=== PATIENT | female | born 1990 | race Caucasian/White ===

== ENCOUNTER 2016-09-25 16:25 | Observation (INO) | payer MEDICAID ==
[~2016-09-25] VITALS: Ht 154.9 cm; Wt 99.0 kg
[2016-09-25 17:15] VITALS: BP 112/62
[2016-09-25] MEDS ORDERED: D5%-LACTATED RINGERS 1,000 ML IV SCH (18:00)
== END 2016-09-25 20:15 | disposition home or self-care (01) ==
LOC: LDOP 16:25 → LDIP 18:00
PROVIDERS: ADMIT Specialist; ATTEND Specialist
DX: O62.9 Abnormality of forces of labor, unspecified (principal); Z3A.33 33 weeks gestation of pregnancy
CPT/HCPCS: 36415; 59025; 81001; 82731; 87086; 96360; 96361; 99211; G0378; G0463; J7121

== ENCOUNTER 2016-10-09 09:26 | Outpatient (CLI) | payer MEDICAID ==
[~2016-10-09] VITALS: Ht 154.9 cm; Wt 100.0 kg
[2016-10-09] MEDS ORDERED: D5%-LACTATED RINGERS 1,000 ML IV SCH (10:30)
[2016-10-09] MEDS ORDERED: LACTATED RINGERS 1,000 ML IVBOLUS ONE (10:30)
[2016-10-09 12:33] LABS: BLOOD UREA NITROGEN 6 mg/dL (7-18)
[2016-10-09 12:36] LABS: ASPARTATE AMINO TRANSFERASE 19 U/L (15-37)
== END 2016-10-09 13:47 | disposition home or self-care (01) ==
LOC: LDOP 09:26
PROVIDERS: ATTEND Specialist
DX: O26.893 Other specified pregnancy related conditions, third trimester (principal); R10.9 Unspecified abdominal pain; O21.9 Vomiting of pregnancy, unspecified; O62.9 Abnormality of forces of labor, unspecified; Z3A.35 35 weeks gestation of pregnancy
CPT/HCPCS: 36415; 59025; 80053; 81001; 82570; 84156; 84550; 85025; 87086; 99211; J7120; G0463; J7121

== ENCOUNTER 2016-10-31 22:56 | Outpatient (CLI) | payer MEDICAID ==
[~2016-10-31] VITALS: Ht 154.9 cm; Wt 104.1 kg
[2016-10-31 23:17] VITALS: BP 116/78
[2016-11-01] MEDS ORDERED: PREN-59 PO (00:11)
== END 2016-11-01 00:20 | disposition home or self-care (01) ==
LOC: LDOP 22:56
PROVIDERS: ATTEND Obstetrics & Gynecology
DX: O62.9 Abnormality of forces of labor, unspecified (principal); O99.343 Other mental disorders complicating pregnancy, third trimester; F32.9 Major depressive disorder, single episode, unspecified; Z3A.39 39 weeks gestation of pregnancy
CPT/HCPCS: 59025; 99211; G0463

== ENCOUNTER 2016-11-04 08:08 | Inpatient (IN) | payer MEDICAID ==
[~2016-11-04] VITALS: Ht 154.9 cm; Wt 102.0 kg
[~2016-11-04 08:08] MED LIST: PREN-59 PO
[2016-11-04] MEDS ORDERED: LACTATED RINGERS 1,000 ML IV SCH (08:13)
[2016-11-04] MEDS ORDERED: OXYTOCIN 30U/ 0.9% NaCL 500ML 500 ML IV ONE (08:13)
[2016-11-04] MEDS ORDERED: SODIUM CHLORIDE FLUSH 10ML SYR IVF PRN (08:30)
[2016-11-04] MEDS ORDERED: FENTANYL PF 100 MCG/2ML IV PRN (08:30)
[2016-11-04] MEDS ORDERED: CALCIUM CARBONATE 500 MG TAB.CHEW PO PRN (08:30)
[2016-11-04] MEDS ORDERED: FENTANYL PF 100 MCG/2ML IVPush PRN (08:30)
[2016-11-04] MEDS ORDERED: ONDANSETRON 2MG/ML, 2ML IVPush PRN (08:30)
[2016-11-04] MEDS ORDERED: VANCOMYCIN PMX 1GM/200ML 200 ML IVPB SCH (09:00)
[2016-11-04] MEDS: PLEASE ENTER HEIGHT AND WEIGHT MC SCH ×2 (09:00→17:00)
[2016-11-04] MEDS ORDERED: MISOPROSTOL 200 MCG TABLET ONE (11:37)
[2016-11-04] MEDS ORDERED: NEWBORN KIT ONE (11:37)
[2016-11-04] MEDS ORDERED: LIDOCAINE 1%, 20ML ONE (11:37)
[2016-11-04] MEDS ORDERED: OXYTOCIN 30U/ 0.9% NaCL 500ML 500 ML ONE (11:37)
[2016-11-04] MEDS ORDERED: OXYTOCIN 30U/ 0.9% NaCL 500ML 500 ML IV SCH (13:58)
[2016-11-04] MEDS ORDERED: HYDROcodone/APAP 5/325 TABLET PO PRN ×2 (14:00)
[2016-11-04] MEDS ORDERED: ONDANSETRON 2MG/ML, 2ML IV PRN (14:00)
[2016-11-04] MEDS ORDERED: MISOPROSTOL 200 MCG TABLET PR PRN (14:00)
[2016-11-04] MEDS ORDERED: METHYLERGONOVINE 0.2 MG/ML IM PRN (14:00)
[2016-11-04 16:45] VITALS: BP 111/75
[2016-11-04 20:25] VITALS: BP 109/73
[2016-11-05 01:45] VITALS: BP 127/86
[2016-11-05] MEDS: IBUPROFEN 600 MG TABLET PO PRN ×2 (02:14→15:20)
[2016-11-05 07:50] VITALS: BP 126/82
[2016-11-05] MEDS ORDERED: PRENATAL VIT/IRON/FA 1 EACH TABLET ONE (07:51)
[2016-11-05] MEDS: DOCUSATE 100 MG CAPSULE PO PRN ×2 (07:54→19:57)
[2016-11-05] MEDS: PRENATAL VIT/IRON/FA 1 EACH TABLET PO SCH (07:54)
[2016-11-05] MEDS ORDERED: IBUP-1222 PO (09:38)
[2016-11-05] MEDS ORDERED: DOCU-30 PO (09:39)
[2016-11-05 17:00] VITALS: BP 110/71
[2016-11-05 19:20] VITALS: BP 112/73
[2016-11-06 01:00] VITALS: BP 114/72
[2016-11-06] MEDS: IBUPROFEN 600 MG TABLET PO PRN ×2 (02:39→11:51)
[2016-11-06 04:00] VITALS: BP 120/78
[2016-11-06 07:15] VITALS: BP 110/73
[2016-11-06] MEDS: PRENATAL VIT/IRON/FA 1 EACH TABLET PO SCH (09:13)
[2016-11-06] MEDS: DOCUSATE 100 MG CAPSULE PO PRN (09:14)
[2016-11-06 11:35] VITALS: BP 100/66
== END 2016-11-06 12:35 | disposition home or self-care (01) | DRG 775 ==
LOC: LDOP 08:08 → LDIP 08:17 → 2NW 16:25
PROVIDERS: ADMIT Student in an Organized Health Care Education/Training Program; ATTEND Student in an Organized Health Care Education/Training Program
PROC: 10E0XZZ Delivery of Products of Conception, External Approach (ICD-10-PCS; principal; 2016-11-04)
DX: O36.63X0 Maternal care for excessive fetal growth, third trimester, not applicable or unspecified (principal); O77.0 Labor and delivery complicated by meconium in amniotic fluid; O32.6XX0 Maternal care for compound presentation, not applicable or unspecified; O99.824 Streptococcus B carrier state complicating childbirth; O69.81X0 Labor and delivery complicated by cord around neck, without compression, not applicable or unspecified; O69.89X0 Labor and delivery complicated by other cord complications, not applicable or unspecified; O99.344 Other mental disorders complicating childbirth; O76 Abnormality in fetal heart rate and rhythm complicating labor and delivery; F32.9 Major depressive disorder, single episode, unspecified; Z3A.39 39 weeks gestation of pregnancy; Z37.0 Single live birth; Z88.0 Allergy status to penicillin; Z88.2 Allergy status to sulfonamides
CPT/HCPCS: 36415; 85025; 86850; 86900; J3370; J2590; J7120